=== PATIENT | male | born 1975 | race Caucasian/White ===

== ENCOUNTER → 2024-11-25 14:19 | Outpatient (REF) | payer OTHER, SELFPAY | LOC: RAD 14:19 | PROVIDERS: ATTENDING PHYSICIAN Hospitalist | DX: R68.89 Other general symptoms and signs (principal) | CPT/HCPCS: 71046 ==

== ENCOUNTER 2025-06-15 14:02 | Emergency (ER) | payer OTHER, SELFPAY ==
[2025-06-15 14:13] VITALS: BP 145/86
--- NOTE | 2025-06-15 15:54 | ED.SKININJ ---
HPI-Injury
General
Chief Complaint: Skin Surface Trauma
Source: patient
Exam Limitations: none
Time Seen by Provider: 06/15/25 15:32
Nursing documentation reviewed up to this point in time: agreed with
History of Present Illness-Injury
Is this injury a work related problem?: No
Is pt an associate of [facility]/[place]?: No
Initial Injury comments:
Accidentally cut self with ski base trimmer. Sustained lac to left palmar thumb. Injury occurred just D[employer] PERSON
Past History
Past History
ED Past Medical History: None
ED Past Surgical History: None
Review of Systems
Review of Systems
Allergies reviewed?: Yes
All Other Systems: ROS reviewed and negative except as documented in HPI and ROS
Constitutional: Reports no symptoms
Musculoskeletal: Reports no symptoms
Skin: Reports other (laceration to palmar surface of left thumb)
Neurological: Reports no symptoms
Psychiatric: Reports no symptoms
Skin Exam
Laceration
Left Distal Palmar Thumb:
Length in cm: 3
Orientation: L shaped
Type of Laceration: simple
Any active bleeding?: low grade venous oozing
Distal skin color and temperature: normal-warm & good color
Normal distal neurovascular exam: Yes
Range of motion: full
Phy Exam
General Physical Exam
General Presentation: well appearing and no apparent distress
General age: appears stated age
General Skin: warm and dry
General Habitus: normal
General Mental: alert
Musculoskeletal Exam
Musculoskeletal Exam: full ROM and neuro vasc intact
Skin Exam
Skin Exam: normal color, warm/dry and no rash
Psychiatric Exam
Psychiatric Exam: normal mood/affect
Course
Orders/Labs/Results
Orders:
Orders
06/15/25 14:13
Thumb/Finger(s) 2 View Lt [CR Finger(s)/thumb Min 2 Vw Lt] Urgent
Comment:
Reason For Exam: cut with hedge clippers
Indicate Which Finger:: Thumb
06/15/25 15:53
Tetanus/Diphth/Acelpertussis [Adacel] 0.5 ml IM .ONCE ONE
Vital Signs
Initial and Last Documented VS:
Initial Vital Signs
Temp Pulse Resp BP Pulse Ox
98.8 F 93 17 145/86 99
06/15/25 14:13 06/15/25 14:13 06/15/25 14:13 06/15/25 14:13 06/15/25 14:13
Last Documented Vital Signs
Temp Pulse Resp BP Pulse Ox
98.8 F 93 17 145/86 99
06/15/25 14:13 06/15/25 14:13 06/15/25 14:13 06/15/25 14:13 06/15/25 15:55
Procedures
Laceration Closure
Left Distal Palmar Thumb:
Status of Wound: clean
Description of Wound Edges: sharp
Preparation: cleaned with saline and cleaned with Betadine
Anesthesia: 1% Lidocaine and Digital-Regional
Revision/Debridement: routine- no revision
Wound exploration: extensive cleaning of contaminated wound
Type of Closure: single layer closure
Skin Closure Material: 5-0 prolene
*Radiology
Radiology exam reviewed: radiology read reviewed
*Pulse Oximetry
SaO2: 99
Oxygen Mode of Delivery: Room air
Patient hypoxic: no
*Critical Care Note
Total Time (30-74mins, 75-104mins- exclusive of procedures): Not Applicable
ED Attending Note
-
Portions of this chart may have been created with voice recognition software.� Occasional wrong word or��sound alike� substitutions may have occurred due to the inherent limitations of voice recognition software.
Discharge Plan
Departure
Patient Disposition: Home (Routine Discharge)
Date of Disposition: 06/15/25
Time of Disposition: 16:16
Patient with high blood pressure during this ER visit?: No
Condition: Good
Covid-19: Not Applicable
Discharge Problem:
Laceration of thumb
Instructions: Laceration Repair With Stitches (DC)
Prescriptions:
No Action
amoxicillin-pot clavulanate 875-125 mg tablet
1 tab PO BID Qty: 14 0RF
pseudoephedrine HCl [Nasal Decongestant (pseudoeph)] 30 mg tablet
30 mg PO Q8HPRN PRN (Reason: nasal congestion) Qty: 10 0RF
Referrals:
Nikita Shaw MD [Family Provider, Internal Medicine]
Referral Note: Sutures can be removed in 7-10 days.
Interventions
Interventions:
*Risk Screen - Suicide Last Done: 06/15/25 14:14
*General Assessment Last Done: 06/15/25 14:14
*Neglect/Abuse Screening Last Done: 06/15/25 14:14
*ED- Fall Risk Assessment Last Done: 06/15/25 15:03
*ED COVID-19 Vaccine History Last Done: 06/15/25 14:14
*ED Influenza Vaccine History Last Done: 06/15/25 14:14
Discharge Date and Time
Print Language: SYRIAN
[2025-06-15] MEDS: ADACEL 0.5 ML IM (16:05)
== END 2025-06-15 16:25 | disposition home or self-care (01) ==
LOC: EMR 14:02
PROVIDERS: EMERGENCY PHYSICIAN Emergency Medicine; FAMILY PHYSICIAN Internal Medicine
DX: S61.019A Laceration without foreign body of unspecified thumb without damage to nail, initial encounter (principal); W29.3XXA Contact with powered garden and outdoor hand tools and machinery, initial encounter; Z23 Encounter for immunization
CPT/HCPCS: 90471; 12002; 99283; 73140; 90715

== ENCOUNTER 2025-07-05 17:23 | Emergency (ER) | payer OTHER, SELFPAY ==
[2025-07-05 17:25] VITALS: BP 133/92
--- NOTE | 2025-07-05 20:53 | ED.GENMED ---
History of Present Illness
<Temitope Domingo MD, Resident - Last Filed: 07/06/25 16:27>
General
Chief Complaint: Skin Problem
Source: patient
Time Seen by Provider: 07/05/25 20:33
History of Present Illness
History of Present Illness:
49-year-old male without significant past medical history presents to the ER for left thumb pain and swelling. He was here 3 weeks ago for an accident with hedge tremors resulting in suture placement. He was prescribed antibiotics however patient
states he did not get any. He had the sutures were removed about 2 weeks ago. Yesterday he noticed increased erythema and swelling around the thumb. He came to the ER today for further evaluation. He denies any fevers, chills, redness traveling
up his arm, pain with movement of his thumb. The only pain he experiences is tenderness to palpation directly to the area.
Past History
<Temitope Domingo MD, Resident - Last Filed: 07/06/25 16:27>
Past History
ED Past Medical History: None
ED Past Surgical History: None
Review of Systems
<Temitope Domingo MD, Resident - Last Filed: 07/06/25 16:27>
Review of Systems
Allergies reviewed?: Yes
Constitutional: Reports no symptoms
EENT: Reports no symptoms
Respiratory: Reports no symptoms
Cardiac: Reports no symptoms
ABD/GI: Reports no symptoms
: Reports no symptoms
Musculoskeletal: Reports other (Left thumb pain)
Neurological: Reports no symptoms
Phy Exam
<Temitope Domingo MD, Resident - Last Filed: 07/06/25 16:27>
General Physical Exam
General Presentation: well appearing
General age: appears stated age
General Skin: warm and dry
General Habitus: obese
General Mental: alert
General Hydration: appears well hydrated
Musculoskeletal Exam
Musculoskeletal Exam: other (Thumb full ROM, no tenderness with palpation along joints. )
Skin Exam
Skin Exam: other (Dull erythema along left thumb pad. No induration felt. Small amount of fluctuance. No purulence or drainage. )
Course
<Temitope Domingo MD, Resident - Last Filed: 07/06/25 16:27>
Orders/Labs/Results
Orders:
Orders
07/05/25 20:49
Amoxicillin 875 mg/Clav 125 mg [Augmentin 875 mg/125 mg] 1 tablet PO NOW STA
Vital Signs
Initial and Last Documented VS:
Initial Vital Signs
Temp Pulse Resp BP Pulse Ox
98.9 F 98 16 133/92 98
07/05/25 17:25 07/05/25 17:25 07/05/25 17:25 07/05/25 17:25 07/05/25 17:25
Last Documented Vital Signs
Temp Pulse Resp BP Pulse Ox
98.9 F 98 16 133/92 98
07/05/25 17:25 07/05/25 17:25 07/05/25 17:25 07/05/25 17:25 07/05/25 20:55
<Lacy Ortez, - Last Filed: 07/07/25 12:44>
Orders/Labs/Results
Orders:
Orders
07/05/25 20:49
Amoxicillin 875 mg/Clav 125 mg [Augmentin 875 mg/125 mg] 1 tablet PO NOW STA
Vital Signs
Initial and Last Documented VS:
Initial Vital Signs
Temp Pulse Resp BP Pulse Ox
98.9 F 98 16 133/92 98
07/05/25 17:25 07/05/25 17:25 07/05/25 17:25 07/05/25 17:25 07/05/25 17:25
Last Documented Vital Signs
Temp Pulse Resp BP Pulse Ox
98.9 F 98 16 133/92 98
07/05/25 17:25 07/05/25 17:25 07/05/25 17:25 07/05/25 17:25 07/05/25 20:55
<Temitope Domingo MD, Resident - Last Filed: 07/06/25 16:27>
MDM/Problems Addressed
Differential Diagnosis Includes:
Cellulitis, abscess, osteomyelitis, tenosynovitis
MDM/Problems Addressed:
Start patient on Augmentin. Physical exam was not significant for underlying abscess that we would be able to drain. Recommend warm water soaks up to 4x a day to promote any pus drainage.
<Temitope Domingo MD, Resident - Last Filed: 07/06/25 16:27>
*Pulse Oximetry
SaO2: 98
Oxygen Mode of Delivery: Room air
Patient hypoxic: no
*Critical Care Note
Total Time (30-74mins, 75-104mins- exclusive of procedures): Not Applicable
Data Reviewed
Review of Other/Old Records Reveals: Records (Prior finger x-ray 06/15/2025 no evidence of osseous injury)
Source: patient and records
ED Attending Note
<Temitope Domingo MD, Resident - Last Filed: 07/06/25 16:27>
-
Portions of this chart may have been created with voice recognition software.� Occasional wrong word or��sound alike� substitutions may have occurred due to the inherent limitations of voice recognition software.
<Lacy Ortez DO - Last Filed: 07/07/25 12:44>
ED Attending Note
Patient seen and examined by attending physician: Yes
I performed the substantive portion of visit, reviewed & personally made and approve the management plan that is documented in note by myself or GERALDINE.: Yes
I performed a history and physical exam of patient and discussed management with resident, I reviewed resident's note and agree with documented findings and plan of care.: Yes
ED Attending Note:
49-year-old male presents to the ER for reevaluation of left thumb after suture removal related to injury from hedge tremors. Patient states he has noted worsening pain and redness today. No purulent drainage. No fevers. He denies any new injury
or trauma. He reports that he did not take any antibiotics for this injury which was sustained at the beginning of June. Vital signs reviewed, patient is awake, alert, appears no acute distress, left hand examination reveals area of healed
laceration over the palmar surface of the thumb, there is a 4 mm area of thick crust present without drainage or fluctuance, palmar aspect of the thumb has dull erythema, no proximal streaking, no induration, no pain on passive or active range of
motion of the thumb, GCS is 15. I discussed with patient and present at bedside along with resident physician present at bedside of continued supportive treatment with warm soaks and addition of antibiotics today. Will also provide patient
with hand specialty referral for reevaluation and further care. Patient and present bedside agree with plan.
Discharge Plan
Departure
Patient Disposition: Home (Routine Discharge)
Date of Disposition: 07/05/25
Time of Disposition: 20:58
Patient with high blood pressure during this ER visit?: Yes
Discharge Problem:
Cellulitis
Instructions: Cellulitis (skin infection) in adults (DC)
Prescriptions:
New
amoxicillin-pot clavulanate 875-125 mg tablet
1 tab PO Q12H 7 Days Qty: 14 0RF
No Action
amoxicillin-pot clavulanate 875-125 mg tablet
1 tab PO BID Qty: 14 0RF
pseudoephedrine HCl [Nasal Decongestant (pseudoeph)] 30 mg tablet
30 mg PO Q8HPRN PRN (Reason: nasal congestion) Qty: 10 0RF
Referrals:
Julio Cesar Davis MD [Active, Orthopedics]
Activity Restrictions/Additional Instructions:
Please soak thumb in warm water up to 4 times a day to encourage any draining of pus under the wound. Please reach out to your PCP or come back to the ER if you develop any significant erythema traveling up the hand/arm, fevers or chills.
Interventions
Interventions:
*Risk Screen - Suicide Last Done: 07/05/25 17:25
*General Assessment Last Done: 07/05/25 17:25
*Neglect/Abuse Screening Last Done: 07/05/25 17:25
*ED- Fall Risk Assessment Last Done: 07/05/25 17:25
*ED COVID-19 Vaccine History Last Done: 07/05/25 17:25
*ED Influenza Vaccine History Last Done: 07/05/25 17:25
*Nursing Disposition Last Done: 07/05/25 21:07
ED-Skin Assessment Last Done: 07/05/25 20:34
Discharge Date and Time
Discharge Date/Time: 07/05/25 21:07
Print Language: AMHARIC
[2025-07-05] MEDS: AUGMENTIN 875 MG/125 MG 1 TABLET PO (21:03)
== END 2025-07-05 21:07 | disposition home or self-care (01) ==
LOC: EMR 17:23
PROVIDERS: EMERGENCY PHYSICIAN Emergency Medicine; FAMILY PHYSICIAN Internal Medicine
DX: L03.012 Cellulitis of left finger (principal); R03.0 Elevated blood-pressure reading, without diagnosis of hypertension
CPT/HCPCS: 99283